=== PATIENT | male | born 1980 | race Caucasian/White ===

== ENCOUNTER 2019-01-27 19:57 | Emergency (ER) | payer SELFPAY | END 2019-01-27 21:09 | disposition left against medical advice (07) | LOC: E/R 19:57 | DX: Z53.21 Procedure and treatment not carried out due to patient leaving prior to being seen by health care provider (principal) ==

== ENCOUNTER 2019-07-15 13:55 | Emergency (ER) | payer OTHER ==
[~2019-07-15] VITALS: Ht 177.8 cm; Wt 92.3 kg
[~2019-07-15 13:55] MED LIST: FAMO-96 PO
[2019-07-15 13:58] VITALS: Ht 177.8 cm; Wt 92.3 kg
[2019-07-15] MEDS ORDERED: LIDOCAINE/MYLANTA 40 ML BTL PO STA (14:33)
[2019-07-15] MEDS ORDERED: BELLADONNA/PHENOBARBITAL TAB PO STA (14:33)
[2019-07-15] MEDS ORDERED: FAMOTIDINE 20 MG TAB PO STA (14:33)
[2019-07-15 15:44] VITALS: BP 129/94; PULSE 85; RESP 18
== END 2019-07-15 15:55 | disposition home or self-care (01) ==
LOC: E/R 13:55
DX: R10.13 Epigastric pain (principal)
CPT/HCPCS: 36415; 80053; 83690; 85025; 93005; Z7502; Z7610